=== PATIENT | female | born 1945 | race Caucasian/White ===

== ENCOUNTER 2017-01-20 06:37 | Day surgery (SDC) | payer MEDICARE, OTHER ==
[2017-01-20] MEDS ORDERED: PROPOFOL 500 MG/50 ML EMU IV ONE (07:06)
[2017-01-20] MEDS ORDERED: LIDOCAINE HCL 1% MPF SOL ONE (07:06)
[2017-01-20 08:39] VITALS: TEMP 96.8
[2017-01-20 09:02] VITALS: O2SAT 97
[2017-01-20 09:11] VITALS: BP 147/80; PULSE 67; RESP 20
== END 2017-01-20 09:23 | disposition home or self-care (01) | DRG 392 ==
LOC: SURG 06:37
PROVIDERS: ATTEND Internal Medicine Gastroenterology
DX: R13.10 Dysphagia, unspecified (principal); Q39.8 Other congenital malformations of esophagus; K22.2 Esophageal obstruction; K44.9 Diaphragmatic hernia without obstruction or gangrene; K31.7 Polyp of stomach and duodenum; K29.50 Unspecified chronic gastritis without bleeding
CPT/HCPCS: J2001; J2704

== ENCOUNTER 2018-11-16 11:10 | Day surgery (SDC) | payer MEDICARE, OTHER | END 2018-11-16 13:44 | disposition home or self-care (01) | LOC: SURG 11:10 ==

== ENCOUNTER 2018-12-07 10:28 | Day surgery (SDC) | payer MEDICARE, OTHER ==
[2018-12-07] MEDS: CYCLOPENTOLATE 1% SOL ONE ×3 (10:51→10:57)
[2018-12-07] MEDS: PHENYLEPHRINE HCL 10% OPHTHAL SOL ONE ×3 (10:51→10:57)
[2018-12-07] MEDS ORDERED: MOXIFLOXACIN-HOME SOL LEFTEYE ONE ×2 (10:52→10:55)
[2018-12-07] MEDS ORDERED: KETOROLAC/HOME 0.5% SOL LEFTEYE ONE ×3 (10:52→10:58)
[2018-12-07] MEDS: TROPICAMIDE 1% OPHTH SOL ONE ×3 (10:52→10:57)
[2018-12-07] MEDS: TETRACAINE HCL 0.5 % 1 DROP SOL ONE ×2 (10:58→11:49)
[2018-12-07] MEDS ORDERED: BSS W/ 0.5 MG P.F. EPI 1 BOTTLE ONE (11:27)
[2018-12-07] MEDS ORDERED: POVIDONE IODINE 5% SOL ONE (11:27)
[2018-12-07] MEDS ORDERED: MIDAZOLAM 2 MG/2 ML SOL ONE (11:42)
[2018-12-07] MEDS: LIDOCAINE HCL 2% MPF 10 ML SOL ONE ×2 (11:54→11:56)
[2018-12-07 12:15] VITALS: BP 133/69; PULSE 69; RESP 18; TEMP 96.7; O2SAT 98
[2018-12-07] MEDS ORDERED: ACETAZOLAMIDE 250 MG PO ONE (12:18)
[2018-12-07] MEDS ORDERED: ACETAZOLAMIDE 500 MG CER PO ONE (12:21)
== END 2018-12-07 12:36 | disposition home or self-care (01) | DRG 125 ==
LOC: SURG 10:28
PROVIDERS: ATTEND Ophthalmology
DX: H25.89 Other age-related cataract (principal); E11.9 Type 2 diabetes mellitus without complications
CPT/HCPCS: J2250; A9270-GY